=== PATIENT | female | born 1970 | race Caucasian/White ===

== ENCOUNTER → 2016-07-25 | Outpatient (CLI) | payer OTHER ==
--- NOTE | 2016-07-25 10:04 | REPMRS ---
Patient History The patient states she had a clinical breast exam in 07/2016. Family history of colorectal cancer in paternal grandfather at age 50 or over. Digital Woman Screen Mammo: July 25, 2016 - Exam #: [id number] Bilateral CC and MLO view(s) were taken. Technologist: Nata Leyva, Technologist Prior study comparison: July 06, 2015, digital woman screen mammo performed at [facility]. July 07, 2014, digital woman screen mammo performed at [facility]. FINDINGS: The breast tissue is heterogeneously dense. This may lower the sensitivity of mammography. There has been no change in the appearance of the mammogram from the prior studies. There is a moderate amount of residual fibroglandular tissue which is fairly symmetric. There is no interval development of dominant mass, areas of architectural distortion, or clustered microcalcification typical of malignancy. ASSESSMENT: BI-RADS/ACR category 1 mammogram. Negative. Recommendation Routine screening mammogram in 1 year (for women over age 40). This mammogram was interpreted with the aid of an FDA-approved computer-aided dectection system. Electronically Signed By: Gaurang Madrid MD 07/25/16 [id number]
== END ==
LOC: M WHC 08:25
PROVIDERS: ATTEND Nurse Practitioner Family
DX: Z12.31 Encounter for screening mammogram for malignant neoplasm of breast (principal); Z80.0 Family history of malignant neoplasm of digestive organs

== ENCOUNTER → 2018-08-20 | Outpatient (CLI) | payer BC ==
--- NOTE | 2018-08-20 10:19 | REPMRS ---
Patient History The patient states she had a clinical breast exam in 07/2018. Family history of colorectal cancer at age 50 or over in paternal grandfather. 3D TOMOSYNTHESIS WAS PERFORMED. Digital Woman Screen Mammo: August 20, 2018 - Exam #: [id number] Bilateral CC and MLO view(s) were taken. Technologist: Reba Paul Technologist Prior study comparison: July 31, 2017, digital woman screen mammo performed at [facility]. July 25, 2016, digital woman screen mammo performed at [facility]. FINDINGS: The breast tissue is heterogeneously dense. This may lower the sensitivity of mammography. There has been no change in the appearance of the mammogram from the prior studies. There is a moderate amount of residual fibroglandular tissue which is fairly symmetric. There is no interval development of dominant mass, areas of architectural distortion, or clustered microcalcification typical of malignancy. Assessment: BI-RADS/ACR category 1 mammogram. Negative Mammogram. Recommendation Routine screening mammogram in 1 year (for women over age 40). This mammogram was interpreted with the aid of an FDA-approved computer-aided dectection system. Electronically Signed By: Gaurang Madrid MD 08/20/18 [id number]
== END ==
LOC: M WHC 08:37
PROVIDERS: ATTEND Nurse Practitioner Family
DX: Z12.31 Encounter for screening mammogram for malignant neoplasm of breast (principal)

== ENCOUNTER → 2018-08-20 | Outpatient (REF) | payer BC ==
[2018-08-24 14:11] LABS: HPV HYBRID CAPTURE II Negative (Negative)
== END ==
LOC: M SFHCWAGY 09:08
PROVIDERS: ATTEND Nurse Practitioner Family
DX: Z12.4 Encounter for screening for malignant neoplasm of cervix (principal)
CPT/HCPCS: 87624; G0123

== ENCOUNTER → 2019-08-26 | Outpatient (CLI) | payer BC ==
--- NOTE | 2019-08-26 11:11 | REPMRS ---
Patient History The patient states she had a clinical breast exam in August 2019. Family history of colorectal cancer at age 50 or over in paternal grandfather. 3D TOMOSYNTHESIS WAS PERFORMED. The Guerline Nagel lifetime risk for breast cancer is 10.7%. ALEX Roblero. Digital Woman Screen Mammo: August 26, 2019 - Exam #: [id number] Bilateral CC and MLO view(s) were taken. Technologist: Sherin Lopez, Technologist Prior study comparison: August 20, 2018, bilateral digital woman screen mammo performed at [facility]. July 31, 2017, digital woman screen mammo performed at [facility]. FINDINGS: The breast tissue is heterogeneously dense. This may lower the sensitivity of mammography. There has been no change in the appearance of the mammogram from the prior studies. There is a moderate amount of residual fibroglandular tissue which is fairly symmetric. There is no interval development of dominant mass, areas of architectural distortion, or clustered microcalcification typical of malignancy. Assessment: BI-RADS/ACR category 1 mammogram. Negative Mammogram. Recommendation Routine screening mammogram in 1 year (for women over age 40). This mammogram was interpreted with the aid of an FDA-approved computer-aided dectection system. Electronically Signed By: Gaurang Madrid MD 08/26/19 [id number]
== END ==
LOC: M WHC 08:49
PROVIDERS: ATTEND Nurse Practitioner Family
DX: Z12.31 Encounter for screening mammogram for malignant neoplasm of breast (principal); Z80.0 Family history of malignant neoplasm of digestive organs

== ENCOUNTER → 2020-10-09 | Outpatient (CLI) | payer BC ==
--- NOTE | 2020-10-09 16:08 | REPMRS ---
Patient History The patient states she had a clinical breast exam in 09/2020. Family history of colorectal cancer at age 50 or over in paternal grandfather. Patient states no breast complaints today. Patient has signed MRS History Sheet. Digital Woman Screen Mammo: October 09, 2020 - Exam #: [id number] Bilateral CC and MLO view(s) were taken. Technologist: Nata Leyva, Technologist Prior study comparison: August 26, 2019, bilateral digital woman screen mammo performed at [facility]. August 20, 2018, bilateral digital woman screen mammo performed at [facility]. July 31, 2017, digital woman screen mammo performed at [facility]. FINDINGS: There are scattered fibroglandular densities. The [place] volumetric breast density category is: B. There is a moderate amount of residual fibroglandular tissue which is fairly symmetric. There is no interval development of dominant mass, architectural distortion, or grouped microcalcification typical of malignancy. There has been no change in the appearance of the mammogram from the prior studies. 3-D tomosynthesis shows no additional findings. Assessment: BI-RADS/ACR category 1 mammogram. Negative Mammogram. Recommendation Routine screening mammogram of both breasts in 1 year (for women over age 40). This patient's [facility] Lifetime Breast Cancer RIsk is estimated at 10.5 %. This mammogram was interpreted with the aid of an FDA-approved computer-aided dectection system. Electronically Signed By: Flako Terrell MD 10/09/20 [id number]
== END ==
LOC: M WHC 14:04
PROVIDERS: ATTEND Advanced Practice Midwife
DX: Z12.31 Encounter for screening mammogram for malignant neoplasm of breast (principal)

== ENCOUNTER → 2021-05-18 | Outpatient (CLI) | payer BC | LOC: M LABSMTC 09:33 | PROVIDERS: ATTEND Anesthesiology | DX: Z01.812 Encounter for preprocedural laboratory examination (principal); Z20.822 Contact with and (suspected) exposure to COVID-19 ==

== ENCOUNTER 2021-05-23 09:32 | Day surgery (SDC) | payer BC ==
[~2021-05-23] VITALS: Ht 167.6 cm; Wt 80.3 kg
[~2021-05-23 09:32] MED LIST: NS 1,000 ML IV ONE
[2021-05-23] MEDS ORDERED: propofoL 200 MG/20 ML VIAL As Ordered ONE (10:21)
[2021-05-23] MEDS ORDERED: LIDOCAINE 2% 100MG/5ML SDV (FOR ANES.) As Ordered ONE (10:21)
[2021-05-23 10:50] VITALS: BP 106/70
== END 2021-05-23 10:57 | disposition home or self-care (01) ==
LOC: M OPP 09:32
PROVIDERS: ATTEND Surgery
DX: Z12.11 Encounter for screening for malignant neoplasm of colon (principal); Z88.2 Allergy status to sulfonamides; Z88.6 Allergy status to analgesic agent; I05.9 Rheumatic mitral valve disease, unspecified; Z78.0 Asymptomatic menopausal state

== ENCOUNTER → 2021-12-26 | Outpatient (CLI) | payer BC | LOC: M WHC 08:29 | PROVIDERS: ATTEND Obstetrics & Gynecology | DX: Z12.31 Encounter for screening mammogram for malignant neoplasm of breast (principal) ==

== ENCOUNTER → 2021-12-26 | Outpatient (REF) | payer BC | LOC: M PLALAB 09:20 | PROVIDERS: ATTEND Obstetrics & Gynecology | DX: Z01.419 Encounter for gynecological examination (general) (routine) without abnormal findings (principal) ==

== ENCOUNTER → 2023-02-25 | Outpatient (REF) | payer BC | LOC: M SFHCWAGY 10:16 | PROVIDERS: ATTEND Obstetrics & Gynecology | DX: Z01.419 Encounter for gynecological examination (general) (routine) without abnormal findings (principal) | CPT/HCPCS: 87624; G0123 ==

== ENCOUNTER → 2023-02-25 | Outpatient (CLI) | payer BC | LOC: M WHC 13:32 | PROVIDERS: ATTEND Obstetrics & Gynecology | DX: Z12.31 Encounter for screening mammogram for malignant neoplasm of breast (principal) ==

== ENCOUNTER → 2024-03-11 | Outpatient (CLI) | payer BC | LOC: M WHC 15:02 | PROVIDERS: ATTEND Obstetrics & Gynecology | DX: Z12.31 Encounter for screening mammogram for malignant neoplasm of breast (principal); R92.323 Mammographic fibroglandular density, bilateral breasts ==

== ENCOUNTER → 2024-03-11 | Outpatient (REF) | payer BC ==
[2024-03-15 11:02] LABS: HPV APTIMA Not Detected (Not Detected)
== END ==
LOC: M LAB REF 17:18
PROVIDERS: ATTEND Obstetrics & Gynecology
DX: Z12.4 Encounter for screening for malignant neoplasm of cervix (principal); R87.610 Atypical squamous cells of undetermined significance on cytologic smear of cervix (ASC-US)
CPT/HCPCS: 87624; G0123

== ENCOUNTER → 2025-03-14 | Outpatient (REF) | payer BC ==
[2025-03-17 06:22] LABS: HPV APTIMA Not Detected (Not Detected)
== END ==
LOC: M SFHCWAGY 11:46
PROVIDERS: ATTEND Obstetrics & Gynecology
DX: Z12.4 Encounter for screening for malignant neoplasm of cervix (principal)

== ENCOUNTER → 2025-03-14 | Outpatient (CLI) | payer BC | LOC: M WHC 08:05 | PROVIDERS: ATTEND Obstetrics & Gynecology | DX: Z12.31 Encounter for screening mammogram for malignant neoplasm of breast (principal); R92.323 Mammographic fibroglandular density, bilateral breasts; Z12.4 Encounter for screening for malignant neoplasm of cervix | CPT/HCPCS: 77063; 77067; 87624; G0123 ==